=== PATIENT | male | born 1995 | race Caucasian/White ===

== ENCOUNTER 2019-08-30 03:38 | Emergency (ER) | payer SELFPAY ==
[2019-08-30] MEDS ORDERED: Lidocaine 2% Viscous Solution 15 ML Cup PO ONE (03:50)
[2019-08-30] MEDS ORDERED: Benzocaine 20% Topical Spray UD MUCMEM ONE (03:50)
[2019-08-30] MEDS ORDERED: Ketorolac 60 MG/2 ML SDV IM ONE (03:50)
--- NOTE | 2019-08-30 03:56 | EDM.PDOC ---
ED HPI GENERAL MEDICAL PROBLEM - General Chief Complaint: ENT Problem Stated Complaint: TOOTHACHE Time Seen by Provider: 08/30/19 03:43 - History of Present Illness INITIAL COMMENTS - FREE TEXT/NARRATIVE: HISTORY AND PHYSICAL: History of present illness: The patient is a 23-year-old male with no stated medical history who presents with complaints of dental pain at his right upper front jaw area and to the area. He says his pain started about 3 hours ago and he has had in the past. He has no systemic complaints of fever chills chest pain shortness of breath abdominal issues. He took Tylenol at home but no other medications. He has plans to connect and try to see a dentist in the morning and if not today then on Sunday to have evaluation of this area to see what needs to be done with the teeth. Review of systems: As per history of present illness and below otherwise all systems reviewed and negative. Past medical history: As per history of present illness and as reviewed below otherwise noncontributory. Surgical history: As per history of present illness and as reviewed below otherwise noncontributory. Social history: No reported history of drug or alcohol abuse. Family history: As per history of present illness and as reviewed below otherwise noncontributory. Physical exam: General: Well-developed well-nourished man who is nontoxic and vital signs are noted by me. He has no gross HEENT: Atraumatic, normocephalic, pupils reactive, negative for conjunctival pallor or scleral icterus, mucous membranes moist, throat clear, neck supple, nontender, trachea midline. There is no cervical adenopathy or nuchal rigidity. There are multiple areas of dental disease and gingival changes the most noteworthy is at the right upper maxillary area surrounding to 45 and 6 where the gum is inflamed and swollen but there is no fluctuance and there is tenderness to palpation. Lungs: Clear to auscultation, breath sounds equal bilaterally, chest nontender. Heart: S1S2, regular, rate and rhythm no overt murmurs Abdomen: Deferred Pelvis: Deferred Genitourinary: Deferred. Rectal: Deferred. Extremities: Atraumatic, full range of motion without defects or deficits Neurovascular unremarkable. Neuro: Awake, alert, oriented. Cranial nerves II through XII unremarkable. Cerebellum unremarkable. Motor and sensory unremarkable throughout. Exam nonfocal. Diagnostics: [] Therapeutics: Toradol IM dental balls Impression: Dental infection/pain Definitive disposition and diagnosis as appropriate pending reevaluation and review of above. Treatments SENIOR CATEGORY MANAGER: Reports: Acetaminophen dental area Pain Score (Numeric/FACES): 10 - Related Data Allergies Allergy/AdvReac Type Severity Reaction Status Date / Time No Known Allergies Allergy Verified 08/30/19 03:46 Home Meds: Home Meds . [No Known Home Meds] 08/30/19 [History] Past Medical History HEENT History: Reports: None Cardiovascular History: Reports: None Respiratory History: Reports: None Gastrointestinal History: Reports: None Genitourinary History: Reports: None Musculoskeletal History: Reports: None Neurological History: Reports: None Psychiatric History: Reports: None Endocrine/Metabolic History: Reports: None Insulin Pump Model and Greige Mender: None Hematologic History: Reports: None Immunologic History: Reports: None Oncologic (Cancer) History: Reports: None Dermatologic History: Reports: None - Infectious Disease History Infectious Disease History: Reports: None - Past Surgical History Head Surgeries/Procedures: Reports: None Social & Family History - Family History Family Medical History: Noncontributory - Caffeine Use Caffeine Use: Reports: Energy Drinks, Soda - Recreational Drug Use Recreational Drug Use: No ED ROS GENERAL - Review of Systems Review Of Systems: ROS reveals no pertinent complaints other than HPI. ED EXAM, GENERAL - Physical Exam Exam: See Below (See dictation) Course - Vital Signs Last Recorded V/S: Last Vital Signs Temp 36.6 C 08/30/19 03:45 Pulse 102 H 08/30/19 03:45 Resp 18 08/30/19 03:45 BP 129/66 08/30/19 03:45 Pulse Ox 98 08/30/19 03:45 - Orders/Labs/Meds Orders: Active Orders 24 hr Category Date Time Status Benzocaine [Hurricaine One 20%] Med 08/30/19 03:50 Once 2 each MUCMEM ONETIME ONE Ketorolac [Toradol] Med 08/30/19 03:50 Once 60 mg IM ONETIME ONE Lidocaine 2% [Xylocaine 2% Viscous] Med 08/30/19 03:50 Once 15 ml PO ONETIME ONE Departure - Departure Time of Disposition: 03:55 Disposition: Home, Self-Care 01 Condition: Good Clinical Impression: Dental infection - Discharge Information Referrals: PCP,None [Primary Care Provider] - Additional Instructions: The following information is given to patients seen in the emergency department who are being discharged to home. This information is to outline your options for follow-up care. We provide all patients seen in our emergency department with a follow-up referral. The need for follow-up, as well as the timing and circumstances, are variable depending upon the specifics of your emergency department visit. If you don't have a primary care physician on staff, we will provide you with a referral. We always advise you to contact your personal physician following an emergency department visit to inform them of the circumstance of the visit and for follow-up with them and/or the need for any referrals to a consulting specialist. The emergency department will also refer you to a specialist when appropriate. This referral assures that you have the opportunity for followup care with a specialist. All of these measure are taken in an effort to provide you with optimal care, which includes your followup. Under all circumstances we always encourage you to contact your private physician who remains a resource for coordinating your care. When calling for followup care, please make the office aware that this follow-up is from your recent emergency room visit. If for any reason you are refused follow-up, please contact the [facility] emergency department at and ask to speak to the emergency department charge nurse. [facility] Primary care- Internal Medicine and Family [address] [address] [address] on the face for any swelling and use [id number] medications such as Tylenol and ibuprofen for pain management. The proper dose for your size of person is 1000 mg or 2 extra strength Tylenol every 6 hours and Motrin 800 mg every 8 hours. You may also use the dental balls you have been given and apply to areas of discomfort as you choose and as directed by the ER nurse this evening. Please take the amoxicillin you have been given for infection until it is finished. Connect with a local dentist for definitive care and treatment of this problem and return to ER as needed and as discussed - My Orders Last 24 Hours: My Active Orders 08/30/19 03:50 Benzocaine [Hurricaine One 20%] 2 each MUCMEM ONETIME ONE Ketorolac [Toradol] 60 mg IM ONETIME ONE Lidocaine 2% [Xylocaine 2% Viscous] 15 ml PO ONETIME ONE - Assessment/Plan Last 24 Hours: My Active Orders 08/30/19 03:50 Benzocaine [Hurricaine One 20%] 2 each MUCMEM ONETIME ONE Ketorolac [Toradol] 60 mg IM ONETIME ONE Lidocaine 2% [Xylocaine 2% Viscous] 15 ml PO ONETIME ONE
== END 2019-08-30 04:22 | disposition home or self-care (01) ==
LOC: MW.ED 03:38
DX: K04.7 Periapical abscess without sinus (principal)
CPT/HCPCS: 96372; 99282; A9270; J1885

== ENCOUNTER 2023-10-26 23:03 | Emergency (ER) | payer SELFPAY | END 2023-10-26 23:57 | LOC: MW.ED 23:03 | DX: Z02.89 Encounter for other administrative examinations (principal); Z88.5 Allergy status to narcotic agent | CPT/HCPCS: 82947; 99281; 99283 ==